=== PATIENT | male | born 1960 | race Caucasian/White ===

== ENCOUNTER 2023-08-25 08:09 | Emergency (ER) | payer OTHER ==
[2023-08-25] MEDS ORDERED: Lidocaine 1% with EPINEPHrine 1:100,000 10 ML MDV INJECT ONE (08:42)
[2023-08-25] MEDS ORDERED: Lidocaine 2% with EPINEPHrine 1:200,000 20 ML SDV ONE (08:46)
== END 2023-08-25 09:35 | disposition home or self-care (01) ==
LOC: JD.ED 08:09
DX: T81.32XA Disruption of internal operation (surgical) wound, not elsewhere classified, initial encounter (principal)
CPT/HCPCS: 99282; 99283; J3490